=== PATIENT | female | born 1995 | race Caucasian/White ===

== ENCOUNTER 2016-12-05 16:08 | Outpatient (CLI) | payer MEDICAID ==
[~2016-12-05] VITALS: Ht 170.2 cm; Wt 99.1 kg
[~2016-12-05 16:08] MED LIST: ADVAIR IH; COMBIVENT INH14.7 GM IH; DOXYCYCLINE 10100 MG PO; PROVENTIL0.09 MG/A1 IH; SINGULAIR; VENTOLIN0.09 MG IH
[2016-12-05 16:17] VITALS: BP 129/58; PULSE 65; TEMP 96.6
[2016-12-05 16:30] VITALS: BP 129/58; PULSE 65; TEMP 98
== END 2016-12-05 17:10 | disposition home or self-care (01) ==
LOC: LDRO 16:08
DX: O99.89 Other specified diseases and conditions complicating pregnancy, childbirth and the puerperium (principal); R20.2 Paresthesia of skin; Z3A.36 36 weeks gestation of pregnancy

== ENCOUNTER 2016-12-14 22:47 | Outpatient (CLI) | payer MEDICAID ==
[~2016-12-14] VITALS: Ht 175.3 cm; Wt 100.0 kg
[2016-12-14 23:30] VITALS: BP 102/65; PULSE 102
== END 2016-12-15 00:26 | disposition home or self-care (01) ==
LOC: LDRO 22:47
DX: O62.9 Abnormality of forces of labor, unspecified (principal); Z3A.37 37 weeks gestation of pregnancy

== ENCOUNTER 2016-12-19 16:13 | Outpatient (CLI) | payer MEDICAID ==
[~2016-12-19] VITALS: Ht 175.3 cm; Wt 101.4 kg
[2016-12-19 16:24] VITALS: BP 110/61; PULSE 78; TEMP 98.3
[2016-12-19 17:00] VITALS: BP 110/61; PULSE 78; TEMP 98.3
== END 2016-12-19 17:40 ==
LOC: LDRO 16:13
DX: O36.8130 Decreased fetal movements, third trimester, not applicable or unspecified (principal); Z3A.38 38 weeks gestation of pregnancy; Z87.891 Personal history of nicotine dependence

== ENCOUNTER 2016-12-26 07:05 | Inpatient (IN) | payer MEDICARE, MEDICAID ==
[~2016-12-26] VITALS: Ht 170.2 cm; Wt 100.6 kg
[2016-12-26] VITALS (40 sets, daily range): BP systolic 97–121; BP diastolic 55–75; PULSE 52–126; TEMP 97.7–98.1
[2016-12-26 08:10] LABS: BASO % 0.2 % (0.0-2.0); EOS # 0.1 (0.0-0.7); GRAN # 7.6 (1.4-6.5); GRAN % 68.4 % (42.2-75.2); LYMPH # 2.5 (1.2-3.4); LYMPH % 22.5 % (20.0-51.0); MEAN CELL VOLUME 81 fl (80.0-100.0); MEAN CORPUSCULAR HGB CONC 34 g/dl (33.0-37.0); MEAN PLATELET VOLUME 12.1 fl (7.4-10.4); MONO # 0.8 (0.1-0.6); MONO % 7.1 % (1.7-9.3); PLATELET COUNT 204 K/mm3 (130-400); RED BLOOD COUNT 3.43 M/mm3 (4.10-5.30); REDCELL DISTRIBUTION WIDTH-CV 14.6 % (11.5-14.5); WHITE BLOOD COUNT 11.1 K/mm3 (4.8-10.8)
[2016-12-26 08:17] LABS: HEMATOCRIT 27.7 % (37.0-47.0); HEMOGLOBIN 9.3 g/dl (12.5-16.0); MEAN CORPUSCULAR HEMOGLOBIN 27 pg (27.0-31.0)
[2016-12-26] MEDS ORDERED: PERCOCET 325 MG1 TA2 PO (14:51)
[2016-12-26] MEDS ORDERED: MOTRIN 800800 MG/TAB PO (14:51)
[2016-12-27] VITALS: BP 98/50; PULSE 71; TEMP 98.1
[2016-12-27 04:00] VITALS: BP 100/52; PULSE 50; TEMP 97.8
[2016-12-27 07:53] LABS: HEMATOCRIT 21.7 % (37.0-47.0)
[2016-12-27 09:15] VITALS: BP 99/47; PULSE 60; TEMP 97.7
[2016-12-27 16:05] VITALS: BP 103/52; PULSE 62
[2016-12-27 21:45] VITALS: BP 101/48; PULSE 66; TEMP 97.6
[2016-12-28 08:40] VITALS: BP 105/61; PULSE 56; TEMP 97.7
== END 2016-12-28 12:55 | disposition home or self-care (01) | DRG 775 ==
LOC: LDR 07:05 → OB 07:05
PROVIDERS: Obstetrics & Gynecology
PROC: 10E0XZZ Delivery of Products of Conception, External Approach (ICD-10-PCS; principal; 2016-12-26)
PROC: 0HQ9XZZ Repair Perineum Skin, External Approach (ICD-10-PCS; 2016-12-26)
DX: O99.824 Streptococcus B carrier state complicating childbirth (principal); D62 Acute posthemorrhagic anemia; O99.02 Anemia complicating childbirth; O75.89 Other specified complications of labor and delivery; O99.013 Anemia complicating pregnancy, third trimester; D64.9 Anemia, unspecified; O70.0 First degree perineal laceration during delivery; O77.0 Labor and delivery complicated by meconium in amniotic fluid; Z3A.39 39 weeks gestation of pregnancy; Z37.0 Single live birth
CPT/HCPCS: J2210; J2405; J2540; J2590; J7120

== ENCOUNTER 2017-08-22 10:40 | Emergency (ER) | payer MEDICARE, MEDICAID ==
[~2017-08-22] VITALS: Ht 180.3 cm; Wt 99.1 kg
[~2017-08-22 10:40] MED LIST changes: +MOTRIN 800800 MG/TAB PO; +PERCOCET 325 MG1 TA2 PO
[2017-08-22 10:42] VITALS: BP 111/53; TEMP 98.4
[2017-08-22] MEDS ORDERED: SINGULAIR 110 MG/TAB PO (11:01)
[2017-08-22 11:36] LABS: BASO % 0.2 % (0.0-2.0); EOS # 0.1 (0.0-0.7); EOS % 2.4 % (0-4.0); GRAN # 2.8 (1.4-6.5); LYMPH # 1.2 (1.2-3.4); LYMPH % 25.4 % (20.0-51.0); MEAN CELL VOLUME 70 fl (80.0-100.0); MEAN CORPUSCULAR HGB CONC 29 g/dl (33.0-37.0); MEAN PLATELET VOLUME 10.2 fl (7.4-10.4); MONO # 0.5 (0.1-0.6); MONO % 10.6 % (1.7-9.3); PLATELET COUNT 244 K/mm3 (130-400); RED BLOOD COUNT 3.64 M/mm3 (4.10-5.30); REDCELL DISTRIBUTION WIDTH-CV 17.2 % (11.5-14.5)
[2017-08-22 11:44] LABS: HEMATOCRIT 25.3 % (37.0-47.0); HEMOGLOBIN 7.4 g/dl (12.5-16.0); MEAN CORPUSCULAR HEMOGLOBIN 20 pg (27.0-31.0)
[2017-08-22 11:51] LABS: CALCIUM 8.9 mg/dL (8.4-10.2); CREATININE, serum 0.52 mg/dL (0.52-1.25); POTASSIUM 3.8 mmol/L (3.4-5.0)
[2017-08-22 11:51] LABS: COLLECTION METHOD CLEAN CATCH
[2017-08-22 12:00] LABS: MUCOUS Present /lpf; PH 6 (5-8); URINE APPEARANCE Cloudy; URINE BACTERIA Rare /hpf; URINE BILIRUBIN Negative (NEGATIVE); URINE BLOOD 1+ (NEGATIVE); URINE COLOR Yellow; URINE GLUCOSE Negative (NEGATIVE); URINE KETONE Negative (NEGATIVE); URINE LEUKOCYTE ESTERASE 3+ (NEGATIVE); URINE NITRATE Negative (NEGATIVE); URINE PROTEIN(semi-quant) 1+ (NEGATIVE); URINE RBC >50 /hpf; URINE UROBILINOGEN >=4.0 mg/dL (NEGATIVE)
[2017-08-22] MEDS ORDERED: MACROBID 1100 MG/CAP PO (13:26)
[2017-08-22 13:37] VITALS: PULSE 81
[2017-08-24] MEDS ORDERED: CEPHALEXIN500 M1 PO (09:23)
== END 2017-08-22 13:38 | disposition home or self-care (01) ==
LOC: COL.ER 10:40
PROVIDERS: Nurse Practitioner
DX: O20.0 Threatened abortion (principal); O23.41 Unspecified infection of urinary tract in pregnancy, first trimester; O9A.111 Malignant neoplasm complicating pregnancy, first trimester; C34.90 Malignant neoplasm of unspecified part of unspecified bronchus or lung; O99.331 Smoking (tobacco) complicating pregnancy, first trimester; F17.290 Nicotine dependence, other tobacco product, uncomplicated; Z3A.10 10 weeks gestation of pregnancy

== ENCOUNTER 2018-03-23 18:56 | Outpatient (CLI) | payer MEDICARE ==
[~2018-03-23] VITALS: Ht 175.3 cm; Wt 100.9 kg
[~2018-03-23 18:56] MED LIST changes: +CEPHALEXIN500 M1 PO; +MACROBID 1100 MG/CAP PO; +SINGULAIR 110 MG/TAB PO
[2018-03-23 19:30] VITALS: BP 116/63; PULSE 95; TEMP 98.4
== END 2018-03-23 20:30 | disposition home or self-care (01) ==
LOC: LDRO 18:56
DX: O62.9 Abnormality of forces of labor, unspecified (principal); Z3A.38 38 weeks gestation of pregnancy

== ENCOUNTER 2018-03-29 06:37 | Inpatient (IN) | payer MEDICARE, OTHER ==
[~2018-03-29] VITALS: Ht 175.3 cm; Wt 106.4 kg
[2018-03-29] VITALS (40 sets, daily range): BP systolic 96–128; BP diastolic 45–75; PULSE 57–96; TEMP 97.8–98.8
[2018-03-29] MEDS ORDERED: PRENATAL MVI (07:48)
[2018-03-29 08:35] LABS: BASO % 0.2 % (0.0-2.0); EOS # 0.1 (0.0-0.7); EOS % 0.6 % (0-4.0); GRAN # 8.3 (1.4-6.5); GRAN % 74.5 % (42.2-75.2); LYMPH # 2.2 (1.2-3.4); LYMPH % 19.3 % (20.0-51.0); MEAN CELL VOLUME 76 fl (80.0-100.0); MEAN CORPUSCULAR HGB CONC 31 g/dl (33.0-37.0); MEAN PLATELET VOLUME 11.2 fl (7.4-10.4); MONO # 0.5 (0.1-0.6); MONO % 4.4 % (1.7-9.3); PLATELET COUNT 252 K/mm3 (130-400); RED BLOOD COUNT 3.39 M/mm3 (4.10-5.30)
[2018-03-29 08:43] LABS: HEMATOCRIT 25.8 % (37.0-47.0); MEAN CORPUSCULAR HEMOGLOBIN 24 pg (27.0-31.0)
[2018-03-29 09:21] LABS: TRICYCLIC ANTIDEPRESS URINE NEGATIVE
[2018-03-29] MEDS ORDERED: MOTRIN 800800 MG/TAB PO (15:22)
[2018-03-29] MEDS ORDERED: PERCOCET 325 MG1 TA2 PO (15:22)
[2018-03-30] VITALS (9 sets, daily range): BP systolic 103–132; BP diastolic 42–62; PULSE 67–80; TEMP 97.4–98.2
[2018-03-30 14:12] LABS: HEMATOCRIT 21.3 % (37.0-47.0); HEMOGLOBIN 6.5 g/dl (12.5-16.0)
[2018-03-31 07:30] VITALS: BP 101/55; PULSE 68; TEMP 98.8
[2018-03-31 11:28] LABS: HEMATOCRIT 26.1 % (37.0-47.0)
== END 2018-03-31 13:00 | disposition home or self-care (01) | DRG 807 ==
LOC: LDR 06:37 → OB 07:24 → LDR 07:24 → OB 18:00
PROVIDERS: Obstetrics & Gynecology
PROC: 10E0XZZ Delivery of Products of Conception, External Approach (ICD-10-PCS; principal; 2018-03-29)
PROC: 0KQM0ZZ Repair Perineum Muscle, Open Approach (ICD-10-PCS; 2018-03-29)
PROC: 10907ZC Drainage of Amniotic Fluid, Therapeutic from Products of Conception, Via Natural or Artificial Opening (ICD-10-PCS; 2018-03-29)
PROC: 3E033VJ Introduction of Other Hormone into Peripheral Vein, Percutaneous Approach (ICD-10-PCS; 2018-03-29)
PROC: 0UQMXZZ Repair Vulva, External Approach (ICD-10-PCS; 2018-03-29)
DX: O24.420 Gestational diabetes mellitus in childbirth, diet controlled (principal); Z37.0 Single live birth; Z3A.38 38 weeks gestation of pregnancy; O70.1 Second degree perineal laceration during delivery; O71.82 Other specified trauma to perineum and vulva; O77.0 Labor and delivery complicated by meconium in amniotic fluid; O62.2 Other uterine inertia; O99.02 Anemia complicating childbirth; O99.214 Obesity complicating childbirth; Z23 Encounter for immunization; J45.909 Unspecified asthma, uncomplicated; O99.344 Other mental disorders complicating childbirth; F41.9 Anxiety disorder, unspecified; Z85.6 Personal history of leukemia; D64.9 Anemia, unspecified
CPT/HCPCS: J2210; J2405; J2590; J2795; J7120; P9016

== ENCOUNTER 2018-07-14 12:39 | Emergency (ER) | payer MEDICARE ==
[~2018-07-14] VITALS: Ht 175.3 cm; Wt 100.0 kg
[~2018-07-14 12:39] MED LIST changes: +PRENATAL MVI
[2018-07-14 12:43] VITALS: TEMP 98.4
[2018-07-14 13:30] LABS: BASO % 0.5 % (0.0-2.0); EOS # 0.2 (0.0-0.7); EOS % 2.8 % (0-4.0); GRAN # 3.7 (1.4-6.5); GRAN % 56.7 % (42.2-75.2); LYMPH # 2.2 (1.2-3.4); LYMPH % 33.5 % (20.0-51.0); MEAN CELL VOLUME 71 fl (80.0-100.0); MEAN CORPUSCULAR HGB CONC 30 g/dl (33.0-37.0); MEAN PLATELET VOLUME 10.6 fl (7.4-10.4); MONO # 0.4 (0.1-0.6); MONO % 6.3 % (1.7-9.3); PLATELET COUNT 308 K/mm3 (130-400); RED BLOOD COUNT 3.72 M/mm3 (4.10-5.30); REDCELL DISTRIBUTION WIDTH-CV 16.8 % (11.5-14.5)
[2018-07-14 13:32] LABS: HEMATOCRIT 26.3 % (37.0-47.0); HEMOGLOBIN 7.8 g/dl (12.5-16.0); MEAN CORPUSCULAR HEMOGLOBIN 21 pg (27.0-31.0)
[2018-07-14 13:40] LABS: ALBUMIN 3.7 gm/dL (3.5-5.0); BILIRUBIN,TOTAL 0.3 mg/dL (0.0-1.0); CALCIUM 9.2 mg/dL (8.4-10.2); CREATININE, serum 0.61 mg/dL (0.52-1.25); POTASSIUM 3.8 mmol/L (3.4-5.0); TOTAL PROTEIN 7.2 gm/dL (6.4-8.2)
[2018-07-14 15:08] VITALS: BP 108/75; PULSE 67
== END 2018-07-14 15:10 | disposition home or self-care (01) ==
LOC: COL.ER 12:39
PROVIDERS: Emergency Medicine
DX: O03.9 Complete or unspecified spontaneous abortion without complication (principal); J45.909 Unspecified asthma, uncomplicated
CPT/HCPCS: J7030

== ENCOUNTER 2023-12-19 20:06 | Outpatient (CLI) | payer MEDICARE ==
[~2023-12-19] VITALS: Ht 165.1 cm; Wt 81.8 kg
[~2023-12-19 20:06] MED LIST changes: +CEFTIN 250250 MG/TAB PO; +ZOFRAN ODT4 MG PO
[2023-12-19] MEDS ORDERED: LR 1,000 ML IV PRN (20:45)
[2023-12-19 21:00] VITALS: BP 116/61; PULSE 70; TEMP 98.3
== END 2023-12-19 21:15 | disposition home or self-care (01) ==
LOC: LDRO 20:06
DX: O26.893 Other specified pregnancy related conditions, third trimester (principal); R10.9 Unspecified abdominal pain; Z3A.36 36 weeks gestation of pregnancy